=== PATIENT | female | born 1980 | race Caucasian/White ===

== ENCOUNTER → 2017-07-11 | Outpatient (CLI) | payer BC | LOC: OD 17:14 | PROVIDERS: ATTEND Otolaryngology | DX: J30.9 Allergic rhinitis, unspecified (principal) | CPT/HCPCS: 36415; 82785; 86003 ==

== ENCOUNTER → 2018-01-17 | Outpatient (CLI) | payer OTHER ==
--- NOTE | 2018-01-21 14:16 | WOMENS IMAGING REPORT ---
EXAM DESCRIPTION: BILAT DIAGNOSTIC MAMMO W/CAD; U/S BREAST UNILAT LIMITED COMPLETED DATE/TIME: 01/17/2018 12:51 pm; 01/17/2018 1:46 pm REASON FOR STUDY: BILATERAL DIAGNOSTIC MAMMO /N63.0; LT BREAST LUMP N63.0 N63.0 UNSPECIFIED LUMP IN UNSPECIFIED BREAST COMPARISON: None. TECHNIQUE: Standard craniocaudal and mediolateral oblique views of each breast recorded using digita l acquisition. Additional left breast 90 mediolateral view, and cone compression left breast upper outer quadrant i n the area of pain/palpable abnormality left breast CC and MLO orientations. Left breast ultrasound was also performed. LIMITATIONS: None. FINDINGS: RIGHT BREAST MASSES: No suspicious masses. CALCIFICATIONS: No new or suspicious calcifications. ARCHITECTURAL DISTORTION: None. DEVELOPING DENSITY: None. ASYMMETRY: None noted. OTHER: No other significant findings. LEFT BREAST MASSES: No suspicious masses. CALCIFICATIONS: No new or suspicious calcifications. ARCHITECTURAL DISTORTION: None. DEVELOPING DENSITY: None. ASYMMETRY: None noted. OTHER: No other significant finding. Read with the assistance of CAD: .[facility] - R2 Cenova Version 1.3 .[facility] - R2 Cenova Version 1.3 .[facility] - R2 Cenova Version 2.4 .[facility] - R2 Cenova Version 2.4 .[facility] - R2 Brazing Machine Operator Automatic Version 9.2 Left breast ultrasound: Patient indicates a palpable abnormality in the left breast upper outer quadrant. Ultrasound of this area demonstrates a 1.1 x 1 x 0.5 cm simple cyst. IMPRESSION: No mammographic evidence for malignancy bilaterally. Palpable abnormality left breast c orrelates with a simple breast cyst. BREAST DENSITY: c. The breasts are heterogeneously dense, which may obscure small masses. BIRAD: 2 Benign findings. RECOMMENDATION: RECOMMENDED FOLLOW UP: Please continue yearly bilateral screening tomosynthesis in N 2018 SPECIFIC INTERVENTION/IMAGING/CONSULTATION RECOMMENDED:No additional intervention/ imaging/consultati on needed at this time. COMMUNICATION:Patient notified by letter COMMENT: The patient has been notified of the results by letter per MQSA requirements. Additional no tification policies are in place for contacting patient with suspicious or incomplete findings. Quality ID #[id number]: The [employer] recommends an annual screening mammogram for women aged 40 years or over. This facility utilizes a reminder system to ensure that all patients receive reminder letters, and/or direct phone calls for appointments. This includes reminders for routine scr eening mammograms, diagnostic mammograms, or other Breast Imaging Interventions when appropriate. Th is patient will be placed in the appropriate reminder system. The [employer] (ACR) has developed recommendations for screening MRI of the breast s in certain patient populations, to be used in conjunction with mammography. Breast MRI surveillanc e may be appropriate for women with more than 20% lifetime risk of developing breast cancer as deter mined by genetic testing, significant family history of the disease, or history of mantle radiation f or Hodgkins Disease. ACR Practice Guidelines 2008. TECHNICAL DOCUMENTATION: FINDING NUMBER: (1) ASSESSMENT: (1) JOB ID: [id number] [employer]- All Rights Reserved Reading location - IP/workstation name: [facility]
--- NOTE | 2018-01-21 14:16 | WOMENS IMAGING REPORT ---
EXAM DESCRIPTION: BILAT DIAGNOSTIC MAMMO W/CAD; U/S BREAST UNILAT LIMITED COMPLETED DATE/TIME: 01/17/2018 12:51 pm; 01/17/2018 1:46 pm REASON FOR STUDY: BILATERAL DIAGNOSTIC MAMMO /N63.0; LT BREAST LUMP N63.0 N63.0 UNSPECIFIED LUMP IN UNSPECIFIED BREAST COMPARISON: None. TECHNIQUE: Standard craniocaudal and mediolateral oblique views of each breast recorded using digita l acquisition. Additional left breast 90 mediolateral view, and cone compression left breast upper outer quadrant i n the area of pain/palpable abnormality left breast CC and MLO orientations. Left breast ultrasound was also performed. LIMITATIONS: None. FINDINGS: RIGHT BREAST MASSES: No suspicious masses. CALCIFICATIONS: No new or suspicious calcifications. ARCHITECTURAL DISTORTION: None. DEVELOPING DENSITY: None. ASYMMETRY: None noted. OTHER: No other significant findings. LEFT BREAST MASSES: No suspicious masses. CALCIFICATIONS: No new or suspicious calcifications. ARCHITECTURAL DISTORTION: None. DEVELOPING DENSITY: None. ASYMMETRY: None noted. OTHER: No other significant finding. Read with the assistance of CAD: .[facility] - R2 Cenova Version 1.3 .[facility] Imaging - R2 Cenova Version 1.3 .[facility] - R2 Cenova Version 2.4 .[facility] - R2 Cenova Version 2.4 .[facility] - R2 Overhead Line Worker Version 9.2 Left breast ultrasound: Patient indicates a palpable abnormality in the left breast upper outer quadrant. Ultrasound of this area demonstrates a 1.1 x 1 x 0.5 cm simple cyst. IMPRESSION: No mammographic evidence for malignancy bilaterally. Palpable abnormality left breast c orrelates with a simple breast cyst. BREAST DENSITY: c. The breasts are heterogeneously dense, which may obscure small masses. BIRAD: 2 Benign findings. RECOMMENDATION: RECOMMENDED FOLLOW UP: Please continue yearly bilateral screening tomosynthesis in N 2018 SPECIFIC INTERVENTION/IMAGING/CONSULTATION RECOMMENDED:No additional intervention/ imaging/consultati on needed at this time. COMMUNICATION:Patient notified by letter COMMENT: The patient has been notified of the results by letter per MQSA requirements. Additional no tification policies are in place for contacting patient with suspicious or incomplete findings. Quality ID #[id number]: The [employer] recommends an annual screening mammogram for women aged 40 years or over. This facility utilizes a reminder system to ensure that all patients receive reminder letters, and/or direct phone calls for appointments. This includes reminders for routine scr eening mammograms, diagnostic mammograms, or other Breast Imaging Interventions when appropriate. Th is patient will be placed in the appropriate reminder system. The [employer] (ACR) has developed recommendations for screening MRI of the breast s in certain patient populations, to be used in conjunction with mammography. Breast MRI surveillanc e may be appropriate for women with more than 20% lifetime risk of developing breast cancer as deter mined by genetic testing, significant family history of the disease, or history of mantle radiation f or Hodgkins Disease. ACR Practice Guidelines 2008. TECHNICAL DOCUMENTATION: FINDING NUMBER: (1) ASSESSMENT: (1) JOB ID: [id number] [employer]- All Rights Reserved Reading location - IP/workstation name: [facility]
== END ==
LOC: WI 12:05
PROVIDERS: ATTEND Nurse Practitioner Family
DX: N60.02 Solitary cyst of left breast (principal)
CPT/HCPCS: 76642; 77066

== ENCOUNTER 2018-02-06 08:14 | Day surgery (SDC) | payer BC, OTHER ==
[2018-02-06] MEDS ORDERED: PROPOFOL INJ 200 MG/20 ML VIAL IV ONE (09:50)
[2018-02-06] MEDS ORDERED: DIPHENHYDRAMINE HCL 50 MG/ML VIAL IV PRN (09:56)
[2018-02-06] MEDS ORDERED: PROMETHAZINE HCL INJ 25 MG/1 ML VIAL IV PRN (09:56)
--- NOTE | 2018-02-06 11:48 | Operative Report ---
Operative Report DATE OF SURGERY: 02/06/18 Operative Report: The risks, benefits and alternatives of the procedure including the risk of bleeding, perforation requiring surgery are discussed with the patient prior to the procedure and informed consent was obtained. The patient is pulled back to the operating room and placed in the left, lateral decubital position. Propofol medication is administered. Timeout was called. Rectal examination is done which did not reveal masses tears or fissures. an Olympus videoscope was introduced into the patient's rectum. The scope was then carefully advanced all the way to the cecum. There is mild redundancy on the left side of the colon. The cecum was identified by the usual anatomical landmarks of the ileocecal valve as well as the appendiceal office. Photodocumentation is obtained. Intubation of the terminal ileum is done. Luminal and concentric views of the colon obtain as the scope was gradually withdrawn. No masses polyps or AVMs diverticulosis noted. Retroflexion maneuver was performed. The risks benefits and alternatives of the procedure explained to the patient in detail and informed consent is obtained .A GIF Olympus video scope was inserted into the patient's mouth and hypopharynx, the esophagus is identified intubated and insufflated, the scope was then advanced through the esophagus stomach and duodenum, retroflexion maneuver is done the esophagus stomach and first and second portions of the duodenum examined PREOPERATIVE DIAGNOSIS: Change of bowel habits. Dysphagia POSTOPERATIVE DIAGNOSIS: Random biopsies obtained in the terminal ileum to rule out Crohn's disease. Right-sided colon biopsies obtained to rule out collagenous, microscopic, lymphocytic colitis. Esophageal rings biopsies obtained to rule out eosinophilic esophagitis. Mild Schatzki's ring. Hiatal hernia. Gastritis status post biopsy for Helicobacter pylori OPERATION: Colonoscopy with biopsy. EGD with biopsy SURGEON: JEFFREY ROJAS ANESTHESIA: LMAC TISSUE REMOVED OR ALTERED: As noted above. COMPLICATIONS: None. ESTIMATED BLOOD LOSS: None. INTRAOPERATIVE FINDINGS: As noted above. PROCEDURE: Patient tolerated the procedure well. No immediate postprocedure complications are noted following the procedure. She is sent to recovery in good condition. Discharge date 02/06/2018. Discharge diet: Regular. Discharge activity: Regular. 2-3-week follow-up to discuss findings. Patient is instructed to call the office or proceed to the emergency room should there be any further problems or questions. I will wait on the pathology prior to making further recommendations.
[2018-02-06 12:09] VITALS: BP 97/66
== END 2018-02-06 12:00 | disposition home or self-care (01) ==
LOC: OROUT 08:14
PROVIDERS: ATTEND Internal Medicine Gastroenterology
DX: K29.50 Unspecified chronic gastritis without bleeding (principal); K52.9 Noninfective gastroenteritis and colitis, unspecified; K44.9 Diaphragmatic hernia without obstruction or gangrene; K22.2 Esophageal obstruction; K22.70 Barrett's esophagus without dysplasia; Z87.891 Personal history of nicotine dependence
CPT/HCPCS: 43239; 45380; J2704; 813; 88305